=== PATIENT | female | born 1980 | race African-American/Black ===

== ENCOUNTER 2021-05-23 21:05 | Observation (INO) ==
[2021-05-24] MEDS ORDERED: ONDANSETRON 4 MG/2 ML VIAL IV STA (01:22)
[2021-05-24] MEDS ORDERED: HYDROmorphone 2 MG/1 ML VIAL IV STA (01:22)
[2021-05-24] MEDS ORDERED: SODIUM CHLORIDE 0.9% 1,000 ML IV STA (01:22)
[2021-05-24 02:59] LABS: Basophils % 0.2 % (0.0-0.8); Hematocrit 42.4 VOL% (35.7-47.0); Hemoglobin 14.1 GM/DL (12.0-16.0); Immature Granulocytes % 0.7 %; Immature Granulocytes Absolute 0.07 #; Lymphocytes % 10.2 % (21.3-54.2); Mean Corpuscular HGB Conc 33.3 GM/DL (32-36); Mean Platelet Volume 8.5 FL (9.6-12.0); Monocytes % 2.5 % (1.7-12.7); Neutrophils % 86.4 % (38.7-73.9); Platelet Count 302 T/CUMM (130-400); Red Blood Count 4.56 MC/CUMM (3.8-5.5); Red Cell Distribution Width 12.3 % (9.3-17.3); White Blood Count 9.6 T/CUMM (4-12)
[2021-05-24 03:10] LABS: Mucus,Urine Many /LPF (Occasional); RBC,Urine 2 /HPF (0-4); Squamous Epithelial Cell,Urine Occasional /HPF (0-10)
[2021-05-24 03:11] LABS: Urine Appearance Clear (Clear); Urine Color Yellow (Yellow); Urine Specific Gravity >= 1.030 (1.001-1.035)
[2021-05-24 03:12] LABS: Bilirubin,Urine Negative (Negative); Blood, Urine Large mg/dL (Negative); Glucose,Urine (UA) Negative (Negative); Ketones,Urine Trace mg/dL (Negative); Nitrite,Urine Negative (Negative); Protein,Urine 30 MG/DL
[2021-05-24 03:24] LABS: Bilirubin,Total 0.5 MG/DL (0.20-1.00); Calcium 9.3 MG/DL (8.5-10.1); Osmolality,Calculated 276.5 MOS/KG (273-304); Potassium 3.7 MMOL/L (3.5-5.1); Total Protein 8.4 G/DL (6.4-8.2)
[2021-05-24 03:29] LABS: PT Patient Result 11.3 SECS (10.5-12.0)
[2021-05-24] MEDS ORDERED: ONDANSETRON 4 MG/2 ML VIAL IV PRN ×2 (04:00→05:22)
[2021-05-24] MEDS ORDERED: SODIUM CHLORIDE 0.9% 1,000 ML IV SCH (04:00)
[2021-05-24] MEDS ORDERED: BISACODYL 10 MG SUPP RECTAL PRN (04:00)
[2021-05-24] MEDS ORDERED: MAGNESIUM HYDROXIDE SUSP 30 ML UDCUP PO PRN (04:00)
[2021-05-24] MEDS ORDERED: OXYTOCIN/LR 20 UNIT/1,000 ML BAG IV ONE (04:00)
[2021-05-24] MEDS ORDERED: ACETAMINOPHEN 325 MG TABLET PO PRN (04:00)
[2021-05-24] MEDS ORDERED: MORPHINE 4 MG/1 ML VIAL IV PRN (04:06)
[2021-05-24] MEDS ORDERED: MEPERIDINE 50 MG/1 ML VIAL IV PRN ×2 (05:22→07:42)
[2021-05-24] MEDS: IBUPROFEN 800 MG TABLET PO PRN ×2 (06:12→21:50)
[2021-05-24 06:25] LABS: Basophils % 0.3 % (0.0-0.8); Eosinophils % 0.2 % (0.00-10.9); Hematocrit 33.3 VOL% (35.7-47.0); Hemoglobin 11.3 GM/DL (12.0-16.0); Immature Granulocytes % 0.4 %; Immature Granulocytes Absolute 0.04 #; Lymphocytes # 2.1 10*3/uL (1.4-4.0); Lymphocytes % 21.6 % (21.3-54.2); Mean Corpuscular HGB Conc 33.9 GM/DL (32-36); Mean Platelet Volume 8.6 FL (9.6-12.0); Monocytes % 4.4 % (1.7-12.7); Neutrophils % 73.1 % (38.7-73.9); Platelet Count 293 T/CUMM (130-400); Red Blood Count 3.58 MC/CUMM (3.8-5.5); Red Cell Distribution Width 12.1 % (9.3-17.3); White Blood Count 9.8 T/CUMM (4-12)
[2021-05-24] MEDS ORDERED: ACETAMINOPHEN 500 MG TABLET PO ONE (07:37)
[2021-05-24] MEDS ORDERED: miSOPROStoL 200 MCG TABLET VAG ONE (07:40)
[2021-05-24] MEDS: LACTATED RINGERS 1,000 ML IV SCH ×2 (08:15→16:00)
[2021-05-24] MEDS: DOCUSATE SODIUM 100 MG CAPSULE PO SCH ×2 (11:35→21:50)
[2021-05-25] MEDS: LACTATED RINGERS 1,000 ML IV SCH ×2 (00:20→07:20)
[2021-05-25 05:02] LABS: Basophils % 0.4 % (0.0-0.8); Eosinophils # 0.1 10*3/uL (0.0-0.87); Eosinophils % 1.4 % (0.00-10.9); Hematocrit 31.3 VOL% (35.7-47.0); Hemoglobin 10.4 GM/DL (12.0-16.0); Immature Granulocytes % 0.2 %; Immature Granulocytes Absolute 0.01 #; Lymphocytes # 2.4 10*3/uL (1.4-4.0); Lymphocytes % 49.5 % (21.3-54.2); Mean Corpuscular HGB Conc 33.2 GM/DL (32-36); Mean Corpuscular Volume 94.8 FL (87-102); Mean Platelet Volume 8.6 FL (9.6-12.0); Neutrophils % 42.5 % (38.7-73.9); Platelet Count 258 T/CUMM (130-400); White Blood Count 4.8 T/CUMM (4-12)
[2021-05-25 05:27] LABS: Eosinophils 6 % (0-10); Hypochromia Slight; Lymphocytes 49 % (20-55); Microcytosis Slight; Platelet Estimate Adequate; Segmented Neutrophils 42 % (50-85); Total Cells Counted 100
[2021-05-25] MEDS: IBUPROFEN 800 MG TABLET PO PRN (09:50)
[2021-05-25 10:11] VITALS: BP 120/68
[2021-05-25] MEDS: DOCUSATE SODIUM 100 MG CAPSULE PO SCH (12:49)
== END 2021-05-25 12:35 | disposition home or self-care (01) ==
LOC: N.ED 21:05 → N.EDINP 21:05 → N.OB 05-24 05:12
PROVIDERS: ADMIT Obstetrics & Gynecology; ATTEND Obstetrics & Gynecology